=== PATIENT | female | born 1975 | race Caucasian/White ===

== ENCOUNTER 2018-09-25 14:41 | Outpatient (CLI) | payer OTHER ==
--- NOTE | 2018-09-26 11:14 | MRI Report ---
Reason: PAIN IN RIGHT KNEE Procedure Date: 09/25/2018 Accession Number: [id number] / [id number] Procedure: MRI - Knee RT W/O CPT Code: FULL RESULT: EXAM: RIGHT KNEE MRI WITHOUT CONTRAST EXAM DATE: 09/25/2018 03:41 PM. CLINICAL HISTORY: Right knee pain after a fall. COMPARISON: None. TECHNIQUE: Multiplanar, multisequence T1-weighted and fluid-sensitive sequences of the knee without contrast. Other: None. FINDINGS: Bones: No fractures or subluxations. No marrow edema. No bone lesions. Articular Cartilage: Mild surface erosion of the hyaline cartilage of the medial and patellofemoral compartments. Small medial compartment osteophytes. Medial Meniscus: The medial meniscus is intact. There is a 7 x 4 mm medial parameniscal cyst. Lateral Meniscus: The lateral meniscus is intact. Cruciate Ligaments: The anterior and posterior cruciate ligaments are intact. Collateral Ligaments: The medial collateral and lateral collateral ligamentous structures are intact. Tendons: The quadriceps, patellar, semimembranosus, and popliteus tendons are unremarkable. Musculature: No edema or fatty atrophy. Other: There is a small joint effusion. No popliteal cyst. No loose bodies. The medial and lateral retinacula are intact. The subcutaneous tissues and fat pads are unremarkable. IMPRESSION: 1. Small joint effusion. 2. Mild medial compartment osteoarthritis. Mild cartilage erosion in the patellofemoral compartment. [facility] MUSCULOSKELETAL RADIOLOGY SECTION
== END 2018-09-25 14:42 | disposition home or self-care (01) ==
LOC: DI 14:41
PROVIDERS: ATTEND General Practice
DX: M17.11 Unilateral primary osteoarthritis, right knee (principal); M25.461 Effusion, right knee